=== PATIENT | female | born 1950 | race Asian ===

== ENCOUNTER 2020-06-28 08:28 | Day surgery (SDC) | payer OTHER, MEDICARE ==
[2020-06-24 13:11] VITALS: BMI 26.6
--- OUTSIDE RECORDS SUMMARY | 2020-06-28 08:33 | XMS ---
:1950 Author Organization [facility] Support Name Relationship Address Phone RE Unavailable Unavailable Unavailable [address] [place] [address] Re-disclosure Warning The records that you are about to access may contain information from federally- assisted alcohol or drug abuse programs. If such information is present, then the following federally mandated warning applies: This information has been disclosed to you from records protected by federal confidentiality rules (42 CFR part 2). The federal rules prohibit you from making any further disclosure of this information unless further disclosure is expressly permitted by the written consent of the person to whom it pertains or as otherwise permitted by 42 CFR part 2. A general authorization for the release of medical or other information is NOT sufficient for this purpose. The Federal rules restrict any use of the information to criminally investigate or prosecute any alcohol or drug abuse patient.The records that you are about to access may contain highly sensitive health information, the redisclosure of which is protected by Article 27-F of the [facility] Public Health law. If you continue you may haveaccess to information: Regarding HIV / AIDS; Provided by facilities licensed or operated by the [facility] Office of Mental Health; or Provided by the [facility] Office for People With Developmental Disabilities. If such information is present, then the following [facility] mandated warning applies: This information has been disclosed to you from confidential records which are protected by state law. State law prohibits you from making any further disclosure of this information without the specific written consent of the person to whom it pertains, or as otherwise permitted by law. Any unauthorized further disclosure in violation of state law may result in a fine or detention sentence or both. A general authorization for the release of medical or other information is NOT sufficient authorization for further disclosure. Insurance Providers Payer name Policy type Policy ID Covered Covered libertarian's Policy P tierra / Coverage libertarian ID relationship to [facility] ormation type taylor [employer] [id number] [employer] MEDICARE [id number] [employer] [id number] [employer] Results ID Date Data Source [id number] 06/25/2020 11:45:00 AM EDT [facility] Name Value Range Interpretation Description Data Sup porting Code Source(s) Document(s ) SARS [facility] coronavirus 2 RNA This lab was ordered by RONNI severino [facility] and reported by [facility]. Procedure
[2020-06-28] MEDS ORDERED: PROPOFOL 20 ML ONE ×2 (09:57)
[2020-06-28 11:06] VITALS: TEMP 98
[2020-06-28 12:04] VITALS: BP 122/72; PULSE 65
--- NOTE | 2020-07-01 16:42 | PATH ---
Surgical Pathology Report Patient Name: DEANA HANSON [facility]. Rec. #: [id number] /Age/Gender: 1950 (Age: 69) / F Account: [id number] [facility] Taken: 06/28/2020 Received: 06/28/2020 Reported: 07/01/2020 Physicians: Uriel Ugarte M.D. Specimen(s) Received A: HOT SNARE POLYPECTOMY SIGMOID COLON B: POLYP SPLENIC FLEXURE C: POLYP DISTAL RIGHT COLON D: HOT SNARE POLYPECTOMY RIGHT COLON Clinical History History of polyps Postoperative diagnosis: Colon polyps Final Diagnosis A. SIGMOID COLON POLYP, POLYPECTOMY: TUBULAR ADENOMA. B. SPLENIC FLEXURE POLYP, POLYPECTOMY: TUBULAR ADENOMA. C. DISTAL RIGHT COLON POLYP, POLYPECTOMY: TUBULAR ADENOMA. D. RIGHT COLON POLYP, POLYPECTOMY: TUBULAR ADENOMA. Electronically Signed Hector Peoples M.D. Gross Description A. Received in formalin labeled "hot snare polypectomy sigmoid colon," are 2 manzo, polypoid portions of soft tissue measuring 0.6 and 0.9 cm in greatest dimension. The larger portion is bisected and the specimen is entirely submitted in one cassette. B. Received in formalin, labeled "biopsy polyp splenic flexure" is a manzo, irregular portion of soft tissue measuring 0.4 cm. in greatest dimension. The specimen is submitted in toto in one cassette. C. Received in formalin, labeled "biopsy polyp distal right colon" is a manzo, irregular portion of soft tissue measuring 0.2 cm. in greatest dimension. The specimen is submitted in toto in one cassette. D. Received in formalin, labeled "hot snare polypectomy proximal right colon" is a manzo, polypoid portion of soft tissue measuring 0.6 . in greatest dimension. The specimen is submitted in toto in one cassette. DL06/29/2020 saudi06/29/2020
== END 2020-06-28 12:04 | disposition home or self-care (01) ==
LOC: FASU-ENDO 08:28
PROVIDERS: ATTEND Internal Medicine Gastroenterology
PROC: 0DBL8ZX Excision of Transverse Colon, Via Natural or Artificial Opening Endoscopic, Diagnostic (ICD-10-PCS; 2020-06-28)
PROC: 0DBN8ZX Excision of Sigmoid Colon, Via Natural or Artificial Opening Endoscopic, Diagnostic (ICD-10-PCS; 2020-06-28)
PROC: 0DBK8ZX Excision of Ascending Colon, Via Natural or Artificial Opening Endoscopic, Diagnostic (ICD-10-PCS; principal; 2020-06-28 10:25)
DX: Z09 Encounter for follow-up examination after completed treatment for conditions other than malignant neoplasm (principal); Z86.010 Personal history of colon polyps; D12.2 Benign neoplasm of ascending colon; D12.3 Benign neoplasm of transverse colon; D12.4 Benign neoplasm of descending colon; D12.5 Benign neoplasm of sigmoid colon
CPT/HCPCS: 82962; 88305-TC

== ENCOUNTER 2023-04-12 08:03 | Day surgery (SDC) | payer OTHER, MEDICARE ==
[2023-04-05 10:43] VITALS: BMI 27.4
[2023-04-12 10:45] VITALS: TEMP 98
[2023-04-12 10:47] VITALS: RESP 18
[2023-04-12 10:48] VITALS: BP 150/73; PULSE 58
== END 2023-04-12 10:45 | disposition home or self-care (01) ==
LOC: FASU-ENDO 08:03
PROVIDERS: ATTEND Internal Medicine Gastroenterology
PROC: 0DBK8ZX Excision of Ascending Colon, Via Natural or Artificial Opening Endoscopic, Diagnostic (ICD-10-PCS; principal; 2023-04-12 09:34)
DX: Z12.11 Encounter for screening for malignant neoplasm of colon (principal); Z86.010 Personal history of colon polyps; D12.2 Benign neoplasm of ascending colon
CPT/HCPCS: 82962; 88305-TC